=== PATIENT | female | born 1990 | race Asian ===

== ENCOUNTER 2016-11-27 15:12 | Emergency (ER) | payer OTHER ==
[~2016-11-27] VITALS: Ht 162.6 cm; Wt 54.4 kg
--- NOTE | 2016-11-27 16:26 | Emergency Room Report ---
History of Present Illness General Chief Complaint: Pain Source: Patient Present Illness HPI 26 YO Female presents to the ED c/O localized 08/20 in severity right shoulder / neck muscle strain x 1 day. Pt states pain upon awakening. pt. reports that she is right handed, and felt some discomfort yesterday after trying to open a bottle that was stuck closed. pt. reports 1 previous hx of pain in the past that resolved on its own. pt. denies hx of cancer, trauma or fall, denies recent spinal procedure/manipulations. pt. denies numbness/tingling in the affected upper extremity, denies extremity weakness. reports pain is exacerbated with turning head from sided to side too quickly or full flexion of the neck. denies recent illness, RUCKER, nausea or vomiting. denies fevers or chills. Denies numbness tingling or loss of sensation or gross motor movements of the extremities, incontinence of bowel or bladder. Denies CP, Palpitations, LOC, AMS, dizziness, Changes in Vision, Sensation, paresthesias, or a sudden severe headache. Allergies: Coded Allergies: No Known Allergies (Unverified , 11/27/16) Patient History Past Medical History: see triage record Past Surgical History: none Last Menstrual Period: 11/20/16 Now: No Reviewed Nursing Documentation: PMH: Agreed, PSxH: Agreed Nursing Documentation-PMH Past Medical History: No Stated History Review of Systems All Other Systems: negative except mentioned in HPI Physical Exam Vital Signs Date Time Temp Pulse Resp B/P (MAP) Pulse Ox O2 Delivery O2 Flow Rate FiO2 11/27/16 15:34 97.7 67 18 110/80 99 Room Air Sp02 EP Interpretation: reviewed, normal General Appearance: no apparent distress, alert, GCS 15, non-toxic Head: normocephalic, atraumatic Eyes: bilateral eye normal inspection, bilateral eye PERRL ENT: hearing grossly normal, normal pharynx, no angioedema, normal voice Neck: full range of motion - with pain upon full flexion, no meningismus, no bony tend, supple/symm/no masses, tender lateral - right lateral, other Respiratory: lungs clear, normal breath sounds, speaking full sentences Cardiovascular #1: regular rate, rhythm, normal capillary refill Cardiovascular #2: 2+ radial (R), 2+ radial (L) Rectal: deferred Musculoskeletal: back normal, gait/station normal, normal range of motion, non- tender - lateral trapezius musculature, no bony ttp Neurologic: alert, oriented x3, responsive, motor strength/tone normal, sensory intact, cerebellar normal, normal gait, speech normal, no pronator, other - 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 Parry is my supervising Physician whom patient management has been discussed with. Diagnostic Impression: Primary Impression: Cervical muscle strain Qualified Codes: S16.1XXA - Strain of muscle, fascia and tendon at neck level , initial encounter ER Course 26 YO Female presents to the ED c/O localized 08/20 in severity right shoulder / neck muscle strain x 1 day. Pt states pain upon awakening. pt. reports that she is right handed, and felt some discomfort yesterday after trying to open a bottle that was stuck closed. pt. reports 1 previous hx of pain in the past that resolved on its own. pt. denies hx of cancer, trauma or fall, denies recent spinal procedure/manipulations. pt. denies numbness/tingling in the affected upper extremity, denies extremity weakness. reports pain is exacerbated with turning head from sided to side too quickly or full flexion of the neck. denies recent illness, RUCKER, nausea or vomiting. denies fevers or chills. Denies numbness tingling or loss of sensation or gross motor movements of the extremities, incontinence of bowel or bladder. Denies CP, Palpitations, LOC, AMS, dizziness, Changes in Vision, Sensation, paresthesias, or a sudden severe headache. 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 Ddx considered but are not limited to Fracture, dislocation, contusion, vertebral artery dissection, Sprain/Strain/Spasm just to name a few. Vital signs: are WNL, pt. is afebrile H&PE are most consistent with neck/trapezius muscle strain/ spasm. no acute trauma, no neurological deficits, no recent manipulation. pt. has FROM with some pain no obvious deformity, no midline ttp, pain is lateral to the right. ORDERS: none required at this time. ED INTERVENTIONS: -Pt. declines pain medication, she states she wants to return to work and will take any necessary medications this evening. -d/w pt. conservative treatment, and to follow up with a primary care provider. pt given a list of primary care clinics for follow up. d/w pt. to return to the ED with worsening or new symptoms. DISCHARGE: At this time pt. is stable for d/c to home. Will provide printed patient care instructions, and any necessary prescriptions. Care plan and follow up instructions have been discussed with the patient prior to discharge. 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 Return to Full Activity: Dec 04, 2016 Patient Instructions: Muscle Cramps and Spasms, [id number], Muscle Strain Additional Instructions: Take medications as directed. Follow up with a Primary Care Provider in 3-5 days, even if your symptoms have resolved. --Please review list of primary care clinics, if you do not already have a primary care provider Return sooner to ED if new symptoms occur, or current symptoms become worse. Do not drink alcohol, drive, or operate heavy machinery while taking Muscle Relaxer as this may cause drowsiness. - Please note that this Emergency Department Report was dictated using [employer] payroll clerk technology software, occasionally this can lead to erroneous entry secondary to interpretation by the dictation equipment. Heather Riddle Nov 27, 2016 16:26
[2016-11-27] MEDS ORDERED: IBUPROFEN600 MG ORAL (16:31)
[2016-11-27] MEDS ORDERED: SOMA250 MG PO (16:31)
[2016-11-27] MEDS ORDERED: CYCLOBENZAPRINE10 MG ORAL (16:31)
[2016-11-27 16:45] VITALS: BP 124/72
== END 2016-11-27 16:45 | disposition home or self-care (01) ==
LOC: EMR 16:07
DX: S16.1XXA Strain of muscle, fascia and tendon at neck level, initial encounter (principal); X58.XXXA Exposure to other specified factors, initial encounter; Y92.89 Other specified places as the place of occurrence of the external cause
CPT/HCPCS: 99284